=== PATIENT | female | born 1970 | race Caucasian/White ===

== ENCOUNTER 2020-09-21 14:45 | Emergency (ER) | payer OTHER, SELFPAY ==
--- NOTE | ~2020-09-21 | XR_ITS ---
EXAMINATION: XR foot RT min 3V EXAM DATE: 09/21/2020 15:10 INDICATION: PAIN prox 2nd metatarsal Rt foot, injury 2 wks ago. Patient walked into metal tomato ca ge 2 wks ago causing puncture wound to prox 2nd metatarsal Rt foot; now having discomfort, tingling i n area of puncture wound. TECHNIQUE: Right foot dorsoplantar, lateral and oblique projections obtained and reviewed. There is no prior study for comparison. FINDINGS: Right metatarsal bones unremarkable. There are no bony erosions identified. There are n o acute fractures or dislocations identified. There is no subcutaneous gas. The soft tissue is unre markable. There are no radiopaque foreign bodies. IMPRESSION: 1. Unremarkable right foot exam. Reviewed, dictated and finalized at location B.
[2020-09-21 14:52] VITALS: BP 135/66; PULSE 83; RESP 16; TEMP 36.5; O2SAT 99
--- NOTE | 2020-09-21 15:03 | ED.LOWEXIN ---
HPI - Extremity Injury (Lower) General Chief Complaint: Extremity Injury, Lower Stated Complaint: rt foot injury Source: patient Mode of arrival: ambulatory Limitations: no limitations History of Present Illness HPI Narrative: 49-year-old female presents to [facility] with complaints of pain to the dorsal aspect of her right foot for the past 2 weeks. Patient reports that 2 weeks ago she accidentally walked into a tomato cage and sustained a puncture wound to the dorsal aspect of her right foot. Patient reports that the wound has been healing well. Patient reports that she is up-to-date on her tetanus shot. Patient reports that she is noticed continuing pain to the dorsal aspect of her right foot. Patient denies erythema, swelling, numbness or tingling. Patient reports that the pain is worse with ambulation. MD complaint: foot injury Onset (ago): week(s) (2) Type of Injury: puncture wound Place: home Relieving factors: nothing Exacerbating factors: weight bearing Other symptoms: none Treatments prior to arrival: cold therapy Related Data Allergies Allergy/AdvReac Type Severity Reaction Status Date / Time No Known Allergies Allergy Verified 07/28/20 11:32 Review of Systems Constitutional: Constitutional: Denies fever(s) ENT: Denies dysphagia, Denies epistaxis and Denies sore throat Gastrointestinal: Gastrointestinal: Denies abdominal pain, Denies diarrhea, Denies nausea and Denies vomiting Musculoskeletal: Comments: Pain to dorsal aspect of right foot Integumentary/Breasts: Skin/Breast: Denies rash Neurologic: Denies dizziness PMFSH Surgical History Surgical History (Updated 09/21/20 @ 15:05 by Jelena Weaver APRN) Previous section Family History Family History (Updated 09/21/20 @ 15:05 by Jelena Weaver APRN) Mother Breast cancer Social History Social History Smoking status: Never smoker Second hand tobacco smoke exposure: No Alcohol intake: never Comments At time of signature, I agree with nursing past medical, surgical, social and family history. There is no relevant family history pertinent to the presenting complaint. Exam Const: General: no acute distress Nutritional Appearance: well nourished Orientation/consciousness: patient oriented x3 Neck: Neck: normal visual inspection Resp: Effort & Inspection: normal respiratory effort, not labored, not tachypneic and no use of accessory muscles Auscultation: clear to auscultation bilaterally Cardio: Rate: regular rate, not bradycardic and not tachycardic Rhythm: regular rhythm Heart sounds: no murmurs Back/Spine/Pelvis: Back: no CVA tenderness Skin: General skin exam: normal color Rashes: no rashes Neuro: General: patient oriented x3 and moves all extremities Speech: normal speech Extrem: Other: There is a healing 1 cm wound noted to dorsal aspect of right foot. There is no surrounding erythema, necrotic tissue, bruising, bleeding or signs of infection noted. There is mild pain noted to dorsal aspect of right foot upon palpation. There is no swelling or deformity noted. Psych: Appearance: grossly normal Mental Status: mental status grossly normal Affect: normal affect Attitude: cooperative Thought content: Yes Normal thought content present Course Vital Signs Vital signs: Vital Signs Temperature 36.5 C 09/21/20 14:52 Pulse Rate 83 09/21/20 14:52 Respiratory Rate 16 09/21/20 14:52 Blood Pressure 135/66 09/21/20 14:52 Pulse Oximetry 99 09/21/20 14:52 Temperature 36.5 C 09/21/20 14:52 Pulse Rate 83 09/21/20 14:52 Respiratory Rate 16 09/21/20 14:52 Blood Pressure 135/66 09/21/20 14:52 Pulse Oximetry 99 09/21/20 14:52 MDM - Extremity Injury (Lower) MDM Narrative Medical decision making narrative: Rice therapy discussed with patient. Patient agrees take meloxicam as prescribed. Mir wrap was applied to right foot pe
== END 2020-09-21 15:24 | disposition home or self-care (01) ==
PROVIDERS: Emergency Provider Nurse Practitioner Family; PCP Family Medicine
DX: M79.671 Pain in right foot (principal)
CPT/HCPCS: 73630; 99213; G0463

== ENCOUNTER 2022-02-21 13:02 | Outpatient (CLI) | payer OTHER, BC, SELFPAY ==
--- NOTE | ~2022-02-21 | US_ITS ---
EXAMINATION:US venous doppler LE RT INDICATION:Localized edema TECHNIQUE: Multiple grayscale, color flow and Doppler images of the right lower extremity deep venous systems were obtained and reviewed. COMPARISON:No prior studies for comparison. FINDINGS: The common femoral, superficial femoral and popliteal veins demonstrate normal respiratory variation, augmentation and compressibility. Color flow is also seen within the greater saphenous an d profunda veins. There is deep venous thrombosis of the right posterior tibial and peroneal veins. IMPRESSION: 1: Deep venous thrombosis of the anterior branch of the right posterior tibial and peroneal veins. Dr. Baldev Alfonso discussed with Dr. Phuong Gibbs at 02/21/2022 16:58 USED CAR MANAGER. Reviewed, dictated and finalized at location A. CAR MANAGER
== END 2022-02-21 13:03 | disposition home or self-care (01) ==
PROVIDERS: PCP Family Medicine; Visit Provider Physician Assistant Medical
DX: I82.441 Acute embolism and thrombosis of right tibial vein (principal); I82.451 Acute embolism and thrombosis of right peroneal vein; R60.0 Localized edema
CPT/HCPCS: 93971

== ENCOUNTER 2022-06-09 11:07 | Outpatient (CLI) | payer BC, SELFPAY ==
--- NOTE | ~2022-06-09 | US_ITS ---
EXAMINATION: US venous doppler LE RT DATE: 06/09/2022 12:16 INDICATION: 3 month follow-up of acute deep venous thrombosis in the right lower limb treated with an ticoagulation TECHNIQUE: Grayscale ultrasound images without and with compression and Doppler ultrasound images of the right lower extremity veins were obtained. COMPARISON: 02/21/2022 FINDINGS: The right posterior tibial and peroneal veins of the calf are now patent. Visualized portions of righ t common femoral vein, profunda (deep) femoral vein, femoral vein, popliteal vein, peroneal trunk, ga strocnemius vein and greater saphenous vein outflow remain patent. IMPRESSION: 1. No deep venous thrombosis in the right lower limb. Reviewed, dictated and finalized at location A.
== END 2022-06-09 11:08 | disposition home or self-care (01) ==
LOC: ANHIMG 11:11
PROVIDERS: PCP Family Medicine; Visit Provider Internal Medicine Hematology & Oncology
DX: I82.4Y1 Acute embolism and thrombosis of unspecified deep veins of right proximal lower extremity (principal)
CPT/HCPCS: 93971

== ENCOUNTER 2022-06-27 08:47 | Outpatient (CLI) | payer BC, SELFPAY ==
[2022-06-30 11:52] LABS: Homocysteine 9.7 umol/L (<10.4)
[2022-06-30 23:26] LABS: Antithrombin III Activity 115 % normal (80-135)
[2022-07-03 12:07] LABS: Lupus dRVVT Screen 32 sec (<=45); PTT-LA Screen 29 sec (<=40)
[2022-07-08 02:05] LABS: Factor V (Leiden) Mutation POSITIVE
== END 2022-06-27 08:48 | disposition home or self-care (01) ==
LOC: ANHLAB 08:50
PROVIDERS: PCP Family Medicine; Visit Provider Internal Medicine Hematology & Oncology
DX: I82.4Y1 Acute embolism and thrombosis of unspecified deep veins of right proximal lower extremity (principal)
CPT/HCPCS: 36415; 81240; 81241; 83090; 85300; 85303; 85306; 85613; 85730; 86146

== ENCOUNTER 2022-10-20 01:05 | Day surgery (SDC) | payer BC, SELFPAY ==
[2022-10-10 13:58] VITALS: BMI 26.6
--- NOTE | 2022-10-19 17:37 | PM.HPGS ---
History of Present Illness History of Present Illness Consent: Risks, benefits, and alternatives have been discussed and questions answered. Patient agrees to proceed with procedure. Chief complaint: neoplasm screening Narrative: Phuong Willoughby is a 52 year old female Referred for colon cancer screening. Review of Systems Review of Systems: All systems reviewed & are unremarkable except as noted in HPI and below PMFSH Past Medical History Medical History History of DVT (deep vein thrombosis) Right leg DVT Surgical History Surgical History Previous section Family History Family History Mother Breast cancer Social History Social History Smoking status: Never smoker Second hand tobacco smoke exposure: No Alcohol intake: current Drinks per week: 2 Substance use: never Substance use type: does not use Lack of Transportation: No Lack of Food: Never True Current Housing: I Have Housing Concerned About Future Housing: No Difficulty Paying Gas/Electric Bills: No Difficulty Paying for Meds: No Currently Unemployed: No Education: Associate Degree Difficulty w/ Childcare or Family Care: No Living arrangements: with family Gender identity (if verbalized by the patient): Female Spiritual care concerns: No Agree to blood products: Yes Meds Home Medications and Allergies Home Medications Medication Instructions Recorded Confirmed Type aspirin 81 mg tablet,delayed 81 mg PO DAILY 10/10/22 10/10/22 History release Allergies Allergy/AdvReac Type Severity Reaction Status Date / Time No Known Allergies Allergy Verified 10/10/22 13:55 Exam Const: General: alert Orientation/consciousness: patient oriented x3 Resp: Auscultation: clear to auscultation bilaterally Cardio: Rhythm: regular rhythm GI: GI Palp: Yes Soft to palpation and No Tenderness to palpation present (GI) Neuro: General: patient oriented x3 Assessment and Plan Assessment and plan (1) Colon cancer screening: Code(s): Z12.11 - Encounter for screening for malignant neoplasm of colon Status: Acute Assessment and Plan: Colonoscopy with possible biopsy or polypectomy or cautery or injection of substances.
[2022-10-20] MEDS: LACTATED RINGERS 1,000 ML 150 ML IV CONT (08:52)
[2022-10-20 08:54] VITALS: BP 112/70; PULSE 76; RESP 18; TEMP 36.7; O2SAT 100
--- NOTE | 2022-10-20 09:10 | WPDANESEPPF ---
Anes - Initial Pre Proc Eval Procedure: Operation Date: 10/20/22 09:30 Proposed Procedures p Screening Colonoscopy - Alf Ramírez MD Date/Time: 10/20/22 09:10 Surgeon: Alf Ramírez MD Pre Op Diagnosis: neoplasm screening Patient Data Age: 52 Gender: F Height: 1.6 m Weight: 64.7 kg Last Vital Signs Temp 98.0 F 10/20/22 08:54 Pulse 76 10/20/22 08:54 Resp 18 10/20/22 08:54 BP 112/70 10/20/22 08:54 Pulse Ox 100 10/20/22 08:54 O2 Del Method Room Air 10/20/22 08:54 Allergies Allergy/AdvReac Type Severity Reaction Status Date / Time No Known Allergies Allergy Verified 10/20/22 08:56 Home Medications Medication Instructions Recorded Confirmed Type aspirin 81 mg tablet,delayed 81 mg PO DAILY 10/10/22 10/20/22 History release Patient hx anesthesia problems: none Family hx anesthesia problems: none Results Review: All pre-operative results and documents have been reviewed as part of the pre-operative evaluation. [facility] Past Medical History Medical History History of DVT (deep vein thrombosis) Right leg DVT Surgical History Surgical History Previous section Family History Family History Mother Breast cancer Social History Social History Smoking status: Never smoker Second hand tobacco smoke exposure: No Alcohol intake: current Drinks per week: 2 Substance use: never Substance use type: does not use Lack of Transportation: No Lack of Food: Never True Current Housing: I Have Housing Concerned About Future Housing: No Difficulty Paying Gas/Electric Bills: No Difficulty Paying for Meds: No Currently Unemployed: No Education: Associate Degree Difficulty w/ Childcare or Family Care: No Living arrangements: with family Gender identity (if verbalized by the patient): Female Spiritual care concerns: No Agree to blood products: Yes Anes - Eval Final PreProcedure Day of Procedure 10/20/22 09:10 Patient weight: normal Heart: regular rate and rhythm Lungs: clear to auscultation Airway: Mallampati scale class II Neurological: alert and oriented Last oral intake: >/= 8 hours ASA classification: II Emergent: no Anesthetic plan: proceed Anesthesia type and monitoring: general GIVS and standard monitoring Results Review: All pre-operative results and documents have been reviewed as part of the pre-operative evaluation. Informed Consent: The patient's anesthetic plan and its attendant risks and benefits were discussed with the patient/family/POA. Questions were solicited and answers provided to the satisfaction of the patient/family/POA.
[2022-10-20 09:33] VITALS: BP 96/52; PULSE 68; RESP 20; O2SAT 100
[2022-10-20 09:43] VITALS: BP 105/62; PULSE 64; RESP 20; O2SAT 100
[2022-10-20 09:53] VITALS: BP 108/67; PULSE 67; RESP 18; O2SAT 100
== END 2022-10-20 10:00 | disposition home or self-care (01) ==
PROVIDERS: PCP Family Medicine; Visit Provider Internal Medicine Gastroenterology
PROC: 0DJD8ZZ Inspection of Lower Intestinal Tract, Via Natural or Artificial Opening Endoscopic (ICD-10-PCS; CPT 45378; principal; 2022-10-20 09:30)
DX: Z12.11 Encounter for screening for malignant neoplasm of colon (principal); K63.89 Other specified diseases of intestine; Z79.82 Long term (current) use of aspirin; Z86.718 Personal history of other venous thrombosis and embolism
CPT/HCPCS: 45380; 45381; 88305; J2704; J7120

== ENCOUNTER 2022-11-23 08:21 | Outpatient (CLI) | payer BC, SELFPAY ==
--- NOTE | ~2022-11-23 | CT_ITS ---
CT of the Abdomen and Pelvis: Indication: Sigmoid ulcer/mass Technique: 2.5 mm axial scans were obtained through the abdomen and pelvis following intravenous adm inistration of 100 cc of Omnipaque 350. Dose reduction technique was used on this scan by utilizing a utomated exposure control and iterative reconstruction technique. The dose-length product (DLP) was 5 23.46 mGy-cm. Findings: Scans through the lung bases are unremarkable. The liver, spleen, pancreas, gallbladder, adrenals and kidneys are within normal limits. No evidence of aortic aneurysm. No lymphadenopathy. No bowel obstruction or bowel wall thickening. There is no evidence to suggest acute appendicitis. Images through the pelvis were performed. Urinary bladder unremarkable. Probable small uterine fibroi ds are noted. No ascites. Impression: No bowel pathology evident on this exam. Probable small uterine fibroids. Reviewed, dictated and finalized at [facility]. Impression: No bowel pathology evident on this exam. Probable small uterine fibroids.
== END 2022-11-23 08:22 | disposition home or self-care (01) ==
PROVIDERS: PCP Family Medicine; Visit Provider Internal Medicine Gastroenterology
DX: K63.3 Ulcer of intestine (principal)
CPT/HCPCS: 74177; Q9967

== ENCOUNTER 2023-02-05 00:27 | Day surgery (SDC) | payer BC, SELFPAY ==
[2023-01-19 14:43] VITALS: BMI 25.7
--- NOTE | 2023-02-02 10:09 | SUR.PREOP ---
Patient called regarding upcoming procedure. Reviewed preop instructions, appointment times, and procedure prep.
--- NOTE | 2023-02-02 17:17 | PM.HPGS ---
History of Present Illness History of Present Illness Consent: Risks, benefits, and alternatives have been discussed and questions answered. Patient agrees to proceed with procedure. Chief complaint: ulcer of intestine Narrative: Phuong Willoughby is a 52 year old female With here for follow-up of an ulcerated mass seen on colonoscopy 2 months ago. Review of Systems Review of Systems: All systems reviewed & are unremarkable except as noted in HPI and below PMFSH Past Medical History Medical History History of DVT (deep vein thrombosis) Right leg DVT Surgical History Surgical History Previous section Family History Family History Mother Breast cancer Social History Social History Smoking status: Never smoker Second hand tobacco smoke exposure: No Alcohol intake: current Drinks per week: 2 Substance use: never Substance use type: does not use Lack of Transportation: No Lack of Food: Never True Current Housing: I Have Housing Concerned About Future Housing: No Difficulty Paying Gas/Electric Bills: No Difficulty Paying for Meds: No Currently Unemployed: No Education: Associate Degree Difficulty w/ Childcare or Family Care: No Living arrangements: with family Gender identity (if verbalized by the patient): Female Spiritual care concerns: No Agree to blood products: Yes Meds Home Medications and Allergies Home Medications Medication Instructions Recorded Confirmed Type aspirin 81 mg tablet,delayed 81 mg PO DAILY 10/10/22 02/05/23 History release Allergies Allergy/AdvReac Type Severity Reaction Status Date / Time latex AdvReac Rash Verified 02/05/23 08:39 Exam Resp: Auscultation: clear to auscultation bilaterally Cardio: Rate: regular rate Rhythm: regular rhythm GI: GI Palp: Yes Soft to palpation and No Tenderness to palpation present (GI) Assessment and Plan Assessment and plan (1) Ulcer, colon: Code(s): K63.3 - Ulcer of intestine Status: Acute Assessment and Plan: Colonoscopy with possible biopsy or polypectomy or cautery or injection of substances.
[2023-02-05 08:30] VITALS: BP 112/72; PULSE 73; RESP 16; TEMP 36.3; O2SAT 100; BMI 24.7
[2023-02-05] MEDS: LACTATED RINGERS 1,000 ML 150 ML IV CONT (08:50)
--- NOTE | 2023-02-05 09:03 | P.PNAN_ITS ---
Anes - Initial Pre Proc Eval Procedure: Operation Date: 02/05/23 09:30 Proposed Procedures p Flexible Sigmoidoscopy - Alf Ramírez MD Date/Time: 02/05/23 09:03 Surgeon: Alf Ramírez MD Pre Op Diagnosis: ulcer of intestine Patient Data Age: 52 Gender: F Height: 1.6 m Weight: 63.5 kg Last Vital Signs Temp 97.4 F L 02/05/23 08:30 Pulse 73 02/05/23 08:30 Resp 16 02/05/23 08:30 BP 112/72 02/05/23 08:30 Pulse Ox 100 02/05/23 08:30 O2 Del Method Room Air 02/05/23 08:30 Allergies Allergy/AdvReac Type Severity Reaction Status Date / Time latex AdvReac Rash Verified 02/05/23 08:39 Home Medications Medication Instructions Recorded Confirmed Type aspirin 81 mg tablet,delayed 81 mg PO DAILY 10/10/22 02/05/23 History release Patient hx anesthesia problems: none Family hx anesthesia problems: none Results Review: All pre-operative results and documents have been reviewed as part of the pre-operative evaluation. [facility] Past Medical History Medical History History of DVT (deep vein thrombosis) Right leg DVT Surgical History Surgical History Previous section Family History Family History Mother Breast cancer Social History Social History Smoking status: Never smoker Second hand tobacco smoke exposure: No Alcohol intake: current Drinks per week: 2 Substance use: never Substance use type: does not use Lack of Transportation: No Lack of Food: Never True Current Housing: I Have Housing Concerned About Future Housing: No Difficulty Paying Gas/Electric Bills: No Difficulty Paying for Meds: No Currently Unemployed: No Education: Associate Degree Difficulty w/ Childcare or Family Care: No Living arrangements: with family Gender identity (if verbalized by the patient): Female Spiritual care concerns: No Agree to blood products: Yes Anes - Eval Final PreProcedure Day of Procedure 02/05/23 09:03 Patient weight: normal Heart: regular rate and rhythm Lungs: clear to auscultation Airway: Mallampati scale class II Neurological: alert and oriented Last oral intake: >/= 8 hours ASA classification: II Emergent: no Anesthetic plan: proceed Anesthesia type and monitoring: general GIVS and standard monitoring Results Review: All pre-operative results and documents have been reviewed as part of the pre- operative evaluation. Informed Consent: The patient's anesthetic plan and its attendant risks and benefits were discussed with the patient/family/POA. Questions were solicited and answers provided to the satisfaction of the patient/family/POA.
[2023-02-05 09:59] VITALS: BP 89/51; PULSE 71; RESP 21; O2SAT 100
[2023-02-05 10:09] VITALS: BP 90/66; PULSE 58; RESP 20; O2SAT 96
[2023-02-05 10:19] VITALS: BP 103/69; PULSE 62; RESP 17; O2SAT 100
== END 2023-02-05 10:27 | disposition home or self-care (01) ==
PROVIDERS: PCP Family Medicine; Visit Provider Internal Medicine Gastroenterology
PROC: 0DJD8ZZ Inspection of Lower Intestinal Tract, Via Natural or Artificial Opening Endoscopic (ICD-10-PCS; CPT 45330; principal; 2023-02-05 09:30)
DX: K63.3 Ulcer of intestine (principal); K57.30 Diverticulosis of large intestine without perforation or abscess without bleeding; Z79.82 Long term (current) use of aspirin; Z86.718 Personal history of other venous thrombosis and embolism; Z80.3 Family history of malignant neoplasm of breast
CPT/HCPCS: 45330; J2704; J7120

== ENCOUNTER 2024-08-13 15:35 | Outpatient (CLI) | payer BC, SELFPAY ==
--- NOTE | ~2024-08-13 | XR_ITS ---
[id number] 08/13/2024 15:50 INDICATION: Left knee pain PROCEDURE: 2 views left knee COMPARISON: No prior studies for comparison. FINDINGS: Fracture, dislocation or subluxation is not identified. The soft tissues appear within norm al limits. No foreign bodies are identified. IMPRESSION: 1: NO ACUTE BONE OR JOINT ABNORMALITY IDENTIFIED. Reviewed, dictated and finalized at location A.
== END 2024-08-13 15:36 | disposition home or self-care (01) ==
LOC: MICIMG 15:38
PROVIDERS: PCP Family Medicine; Visit Provider Student in an Organized Health Care Education/Training Program
DX: M25.562 Pain in left knee (principal)
CPT/HCPCS: 73560

== ENCOUNTER 2024-09-30 08:00 | Outpatient (RCR) | payer BC, SELFPAY ==
--- NOTE | 2024-08-22 12:06 | OPREHPOC ---
Outpatient Therapy Plan of Care This is a Multidisciplinary Plan of Care that may contain components documented by all disciplines (PT, OT, and ST.) PT Problem 1 PT Problem #1 Knowledge Deficit PT Goal 1 Goal / Goal Update *independent with HEP Target Visit 6 PT Problem 2 PT Problem #2 Pain PT Goal 1 Goal / Goal Update 1* pt report pain at worst of 610 2* pt report with sleeping awaken due to pain 1x/ night Target Visit 6 PT Problem 3 PT Problem #3 Impaired Strength PT Goal 1 Goal / Goal Update increase strength of L hip and knee, to improve stability to knee joint 1* single leg standing 20 seconds 2* gross strength of 4+/5 3* pt ambulate without a limp on L LE Target Visit 6
--- NOTE | 2024-08-22 12:07 | PTOPEVAL1 ---
Assessment and note entered by Macrina Kline, PT Evaluation Information Assessment Status Evaluation ICD-10 Condition Codes (PT) Pain in left knee M25.562,Difficulty Walking R26.2 ,Weakness R53.1 Onset May 2024 Subjective Information In May, started working out more for weight loss , starting doing more walking on treadmill with incline; started hurting bad and could not bear weight on her leg or bend her knee; the pain is less than it was initially; problems lifting and moving L leg to get into the bath tub; xray of knee negative; US negative for DVT, Cheney 's cyst activity: university administrative assistant; active lifestyle; Reported Pain Level Pain Score Self Report Additional Pain Score Comments pain range in the past week: 2-10/10; posterior knee, lateral-distal patella- hurts, sometimes pops; popliteal crease, down to ER last week due to pain and unable to bear weight on L LE decrease pain: sit, rest, ice, velcro brace increase pain: standing, walking-- varies 5-60 minute tolerance, stairs- single step, squat, with sleeping, cannot lie on L side: 2-3 x/night Assessment PT Clinical Summary Phuong has the diagnosis of L knee pain. Onset with increased fitness activity and using treadmill with incline. She went to ER recently due to unable to bear weight on L LE-- US was negative for DVT and showed a cheney's cyst. Pain has decreased with rest, ice and use of knee brace . She does not have any history of knee or hip issues. LE functional scale rating of 69% limitation in activity level. Sleeping tolerance, walking and activity level are decreased due to pain. With the evaluation: she has good ROM of L hip and knee with catching and popping of L knee with moving from flexion to extension positions; decreased tolerance of standing and wt bearing on L LE and decreased strength. Tenderness over lateral knee and testing positive for lateral meniscal injury. Skilled PT services are indicated for modalities to decrease pain; therapeutic exercises to increase hip and knee strength with progression of HEP and education. Plan of Care Interventions Electrical Stimulation,Hot Pack/Cold Pack,Manual Therapy,Neuro Re-education,Patient/Caregiver Education,Therapeutic Activities,Therapeutic Exercise,Ultrasound,Other Other Interventions taping PT Services Indicated Yes Treatment Frequency and 1-2x/wk for 6 visits Duration These treatments will address the objective and functional deficits as defined above. The patient will be advanced safely and appropriately in order for the patient to progress towards his/her prior level of function. Additional exercises will be introduced and as well as a comprehensive home exercise program upon discharge, if needed, ?to ensure carryover of functional gains achieved in the clinic. This treatment plan has been reviewed and agreement upon by the patient.
--- NOTE | 2024-09-30 08:55 | OPREHPOC ---
Outpatient Therapy Plan of Care This is a Multidisciplinary Plan of Care that may contain components documented by all disciplines (PT, OT, and ST.) PT Problem 1 PT Problem #1 Knowledge Deficit PT Goal 1 Goal / Goal Update *independent with HEP 09-30-24 d/c goal met Target Visit 6 Progress Met PT Problem 2 PT Problem #2 Pain PT Goal 1 Goal / Goal Update 1* pt report pain at worst of 6/10 2* pt report with sleeping awaken due to pain 1x/ night 09-30-24 d/c goals met Target Visit 6 Progress Met PT Problem 3 PT Problem #3 Impaired Strength PT Goal 1 Goal / Goal Update increase strength of L hip and knee, to improve stability to knee joint 1* single leg standing 20 seconds 2* gross strength of 4+/5 3* pt ambulate without a limp on L LE 09-30-24 d/c goals not met; #1 12 seconds; #2 4/5; #3 limp with walking Target Visit 6 Progress Not Met
--- NOTE | 2024-09-30 08:55 | PTOPDC ---
Assessment and note entered by Macrina Kline, PT Assessment Status Discharge ICD-10 Condition Codes (PT) Pain in left knee M25.562,Difficulty Walking R26.2 ,Weakness R53.1 Onset May 2024 Subjective Information continue to have swelling in her knee, sometimes it is soft and sometimes hard to touch; walking is only about 15-20 minutes; is frustrated about her knee continuing to limit her activity--not able to walk or do squats for fitness; Reported Pain Level Pain Score Self Report Additional Pain Score Comments pain range in the past week 0-4/10; all around knee, mostly in front of knee; sometimes toes go numb; some days are better than others decrease pain: elevate leg, extend knee and DF foot; ice, ibuprofen PRN, not every day; use knee brace PRN increase pain: walking 15-20 minutes pain does not wake her from sleeping Assessment PT Clinical Summary Phuong has received a total of 6 PT sessions Compared to the initial evaluation: pain rating from 2-10/10 to 0-4/10; self rating with LE functional scale from 69 to 46% limitation in activity level; reported awakening from sleeping due to knee pain from 2-3x/night to not awakening at all; increase strength of L hip and knee; increase ability to tolerate full weight on L LE from 2 to 12 seconds with single leg standing; ROM of L knee is 0-115' with pain at both end ranges of motion, and can maintain full knee extension for few seconds only due to pain. Continues to have swelling over knee and limping with walking. Education completed for HEP and pain control. The goals were partially met. Discontinue PT services. She is to continue with the HEP. And contact her provider for follow up appointment. Recommend further imaging of her knee. Plan of Care PT Services Indicated No
== END 2024-09-30 11:26 | disposition home or self-care (01) ==
LOC: ANHPT 08:00
PROVIDERS: PCP Family Medicine; Visit Provider Student in an Organized Health Care Education/Training Program
DX: M25.562 Pain in left knee (principal)
CPT/HCPCS: 97110; 97116; 97140; 97161; 97530